=== PATIENT | female | born 1950 ===

== ENCOUNTER 2022-11-15 07:28 | Outpatient (CLI) | payer OTHER | END 2022-11-15 07:29 | disposition home or self-care (01) | LOC: NUCLEAR 07:28 | PROVIDERS: ATTEND Internal Medicine Gastroenterology | DX: K30 Functional dyspepsia (principal); K59.01 Slow transit constipation; Z12.11 Encounter for screening for malignant neoplasm of colon; K86.81 Exocrine pancreatic insufficiency | CPT/HCPCS: 78264; A9541 ==